=== PATIENT | female | born 1960 | race African-American/Black ===

== ENCOUNTER 2016-06-08 16:40 | Emergency (ER) | payer SELFPAY ==
[~2016-06-08] VITALS: Ht 162.6 cm; Wt 70.0 kg
[2016-06-08 22:35] VITALS: BP 148/82
== END 2016-06-08 22:39 | disposition home or self-care (01) ==
LOC: ER 20:52
DX: M79.671 Pain in right foot (principal); M25.571 Pain in right ankle and joints of right foot; R03.0 Elevated blood-pressure reading, without diagnosis of hypertension; F17.211 Nicotine dependence, cigarettes, in remission
CPT/HCPCS: 73610; 73630; 99284